=== PATIENT | male | born 1975 | race Caucasian/White ===

== ENCOUNTER → 2016-05-13 | Outpatient (CLI) | payer OTHER | LOC: GMAB 10:54 | PROVIDERS: ATTEND Family Medicine | DX: Z00.00 Encounter for general adult medical examination without abnormal findings (principal) ==

== ENCOUNTER 2017-05-16 05:02 | Emergency (ER) | payer BC, OTHER ==
[2017-05-16 05:23] VITALS: O2SAT 97
[2017-05-16] MEDS ORDERED: ONDANSETRON ODT 8 MG TAB SL ONE (05:38)
[2017-05-16] MEDS ORDERED: IBUPROFEN 200 MG TAB PO ONE (05:38)
[2017-05-16] MEDS ORDERED: OSELTAMIVIR 75 MG CAP PO ONE (05:48)
--- NOTE | 2017-05-16 05:51 | ED.PDOC ---
History of Present Illness - General Chief Complaint: Fever Stated Complaint: fever,cough,chills,nausea,back pain Time Seen by Provider: 05/16/17 05:22 Source: patient Exam Limitations: no limitations - History of Present Illness Initial Comments: the patient is a 42-year-old male presenting to the emergency room secondary to fever, chills, headache, sore throat, runny nose, back aches, abdominal pain, nausea, vomiting FOR the last 18 hours. The patient did take 1 dose of Advil yesterday and his gave him a couple of pills of antibiotics. He has previously been healthy. He has had a couple of children with fluids. Oral intake has been okay. No shortness of breath. No productive cough. No altered mental status. Timing/Duration: constant, getting worse Severity: moderate Improving Factors: nothing Worsening Factors: nothing Associated Symptoms: cough, diaphoresis, fever/chills, headaches, loss of appetite, malaise, nausea/vomiting, weakness Allergies/Adverse Reactions: Allergies NO KNOWN ALLERGY Allergy (Verified 05/16/17 05:22) Home Medications: Ambulatory Orders Ondansetron [Zofran Odt] 4 mg PO Q4H PRN #10 tab 05/16/17 Oseltamivir Capsule [Tamiflu] 75 mg PO BID #10 cap 05/16/17 Review of Systems - Review of Systems Constitutional: States: chills, diaphoresis, fever, malaise EENTM: States: nose congestion, throat pain Respiratory: States: cough Cardiology: States: no symptoms reported Gastrointestinal/Abdominal: States: abdominal pain, nausea, vomiting Musculoskeletal: States: other - generalized myalgias Skin: States: no symptoms reported Neurological: States: anxiety Endocrine: States: intolerance to cold All other Systems: No Change from Baseline Past Medical History (General) - Patient Medical History Hx Seizures: No Hx Stroke: No Hx Dementia: No Hx Asthma: No Hx of COPD: No Hx Cardiac Disorders: No Hx Congestive Heart Failure: No Hx Pacemaker: No Hx Hypertension: No Hx Thyroid Disease: No Hx Diabetes: No Hx Gastroesophageal Reflux: No Hx Renal Disease: No Hx Cancer: No Hx of HIV: No Hx Hepatitis C: No Hx MRSA: No Surgical History: no surgical history - Vaccination History Hx Tetanus, Diphtheria Vaccination: Yes Hx Influenza Vaccination: No Hx Pneumococcal Vaccination: No - Social History Hx Tobacco Use: No Hx Chewing Tobacco Use: No Hx Alcohol Use: No Hx Substance Use: No Hx Substance Use Treatment: No Hx Depression: No Hx Physical Abuse: No Hx Emotional Abuse: No Hx Suspected Abuse: No - Female History Patient : No Family Medical History - Family History Mother Living Status: Still Living Hx Family Hypertension: Yes Hx Family Diabetes: Yes Hx Family Cancer: Yes Physical Exam - Physical Exam General Appearance: Alert, Ill Appearing Eye Exam: bilateral normal Ears, Nose, Throat: hearing grossly normal, nasal congestion, pharyngeal erythema Neck: full range of motion, supple Respiratory: lungs clear, normal breath sounds, no respiratory distress, no accessory muscle use Cardiovascular/Chest: normal peripheral pulses, regular rate, rhythm, no edema Peripheral Pulses: radial,right: 2+, radial,left: 2+, dorsalis pedis,right: 2+, dorsalis pedis,left: 2+ Gastrointestinal/Abdominal: soft, other - epigastric discomfort to palpation. No definite rebound or peritoneal signs. Rectal Exam: deferred Back Exam: normal inspection, no CVA tenderness Extremity: normal range of motion, non-tender, normal inspection, no pedal edema , normal capillary refill Neurologic: cream tester II-XII nml as tested, no motor/sensory deficits, alert, normal mood/affect, oriented x 3 Skin Exam: diaphoresis Comments: Vital Signs - 24 hr 05/16/17 05/16/17 05:11 05:15 Temperature 101.2 F H Pulse Rate [ 77 monitor] Respiratory 16 16 Rate Blood Pressure 125/71 [Left Arm] O2 Sat by Pulse 97 Oximetry Progress - Progress Progress: 05/16/17 05:52 the patient is a 41-year-old male presenting to emergency room with symptoms and a positive lab test indicating flu a. The patient will be placed on Tamiflu receiving his first dose here. Initially he needs to schedule ibuprofen with food 600 mg 3 times a day for the next couple of days. He needs to increase his fluid intake. 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 He'll also be written for some Zofran to help control any nausea. If he needs he can take Tylenol in between the Motrin to help control symptoms. ER warnings were given for any significant worsening. He should expect symptoms for another 3 or 4 days.he should follow-up with his primary care doctor towards the end of the week. Departure - Departure Clinical Impression: Flu Disposition: Discharge to Home or Self Care Condition: Fair Departure Forms: ED Discharge - Pt. Copy, Patient Portal Self Enrollment Instructions: Influenza Diet: regular diet Activity: increase activity as tolerated Referrals: Ravi Campbell MD [Primary Care Provider] - 1-2 Weeks Prescriptions: Ondansetron [Zofran Odt] 4 mg PO Q4H PRN #10 tab PRN Reason: Vomiting Oseltamivir Capsule [Tamiflu] 75 mg PO BID #10 cap Home Medications: Ambulatory Orders Ondansetron [Zofran Odt] 4 mg PO Q4H PRN #10 tab 05/16/17 Oseltamivir Capsule [Tamiflu] 75 mg PO BID #10 cap 05/16/17 Additional Instructions: the patient is a 41-year-old male presenting to emergency room with symptoms and a positive lab test indicating flu a. The patient will be placed on Tamiflu receiving his first dose here. Initially he needs to schedule ibuprofen with food 600 mg 3 times a day for the next couple of days. He needs to increase his fluid intake. 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 He'll also be written for some Zofran to help control any nausea. If he needs he can take Tylenol in between the Motrin to help control symptoms. ER warnings were given for any significant worsening. He should expect symptoms for another 3 or 4 days.he should follow-up with his primary care doctor towards the end of the week.
[2017-05-16 06:21] VITALS: BP 121/73; TEMP 100.8
== END 2017-05-16 06:20 | disposition home or self-care (01) ==
LOC: ER 05:02
DX: J11.1 Influenza due to unidentified influenza virus with other respiratory manifestations (principal)

== ENCOUNTER → 2017-10-05 | Outpatient (CLI) | payer BC | LOC: GMAB 18:16 | PROVIDERS: ATTEND Family Medicine | DX: H53.453 Other localized visual field defect, bilateral (principal) ==